=== PATIENT | male | born 1970 | race Caucasian/White ===

== ENCOUNTER 2020-05-09 11:28 | Inpatient (IN) | payer OTHER ==
[~2020-05-09] VITALS: Ht 185.5 cm; Wt 135.1 kg
[2020-05-09 12:15] VITALS: BP 148/83
[2020-05-09 13:18] LABS: ABG BASE EXCESS 1.9 MMOL/L (-2.5-2.5); ABG OXYGEN SATURATION 91 % (94-100); ABG PCO2 39 MMHG (35-45); ABG PH 7.44 (7.37-7.43); ABG PO2 61 MMHG (79-93); ABG TCO2 27.1 MMOL/L (21.0-31.0)
--- NOTE | 2020-05-09 13:19 | History & Physical ---
History of Present Illness History of Present Illness Reason for visit/HPI PT IS A NEW PATIENT IN MY PRACTICE TODAY - HE APPARENTLY WAS EXPOSED TO SOMEONE WITH COVID AND HE HAD BEEN SELF-ISOLATING AT HOME. HIS MOM SUDDENLY ON THURSDAY AT THEIR HOME AND HE STARTED TO FEEL PROGRESSIVLY ILL. HE DID NOT TELL THE OFFICE STAFF THE TRUTH ABOUT HIS EXPOSURE AND PRESENTED INTO MY OFFICE WITH SYMPTOMS OF DIARRHEA, THEN HE TOLD THE OFFICE STAFF THAT HE HAD LOST HIS APPE TITE, AND HAD NOT BEEN EATING WELL OVER THE WEEKEND WHEN HE BECAME PROGRESSIVELY WEAK. HE WAS FOUND TO BE IN ACUTE RESPIRATORY DISTRESS WITH AN OXYGEN SATURATION OF 79% ON ROOM AIR. Date of Admission May 09, 2020 at 12:01 Date Seen by a Provider: May 09, 2020 Time Seen by a Provider: 12:00 Attending Physician ALOK VIDAL MD Admitting Physician Arben Espino MD Consult Allergies and Home Medications Allergies Coded Allergies: No Known Drug Allergies (Unverified , 05/09/20) Home Medications Amlodipine Besylate 10 Mg Tablet, 10 MG PO HS, (Reported) Atorvastatin Calcium 40 Mg Tablet, 40 MG PO HS, (Reported) Cetirizine HCl 10 Mg Tablet, 10 MG PO HS PRN for ALLERGY SYMPTOMS, (Reported) Fenofibric Acid (Choline) 45 Mg Capsule.dr, 45 MG PO HS, (Reported) Hydrochlorothiazide 25 Mg Tablet, 25 MG PO HS, (Reported) Losartan Potassium 100 Mg Tablet, 100 MG PO HS, (Reported) Metformin HCl 1,000 Mg Tablet, 1,000 MG PO BID, (Reported) Patient Home Medication List Home Medication List Reviewed: Yes Past Otjnruk-Rfjfja-Cpywsd Hx Past Med/Social Hx: Reviewed Nursing Past Med/Soc Hx Patient Social History Marrital Status: single Number of Children: 0 Number of living children: 0 Living Status: LIVED WITH HIS MOM 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) Alcohol Use: Occasionally Uses 2nd Hand Smoke Exposure: No Physical Abuse Screen: No Sexual Abuse: No Recent Foreign Travel: No Contact w/other who traveled: No Recent Infectious Disease Expo: Yes (possible exposure to covid19) Seasonal Allergies Seasonal Allergies: Yes Past Medical History Currently Using CPAP: No Currently Using BIPAP: No Cardiac: Hypertension Reproductive: No Sexually Transmitted Disease: No HIV/AIDS: No Gastrointestinal: Chronic Diarrhea Endocrine: Diabetes, Non-Insulin dep Are Your Blood Sugars Over 250: Yes (INTERMITTENTLY) Loss of Vision: Denies Hearing Impairment: Denies Psychosocial: Anxiety History of Blood Disorders: No Adverse Reaction to Blood Gill: No Family History Reviewed Nursing Family Hx COPD (MOM), Hypertension (MOM) Review of Systems Constitutional: No chills; dizziness, fever, malaise, weakness EENTM: No hearing loss, No hoarseness, No throat pain Respiratory: cough, dyspnea on exertion, short of breath Cardiovascular: No chest pain, No edema, No palpitations Gastrointestinal: No abdominal pain; diarrhea, loss of appetite; No nausea, No vomiting Genitourinary: no symptoms reported Musculoskeletal: muscle weakness Skin: no symptoms reported Psychiatric/Neurological: Anxiety; Denies Depressed; Numbness (FEET), Weakness All Other Systems Reviewed Negative Unless Noted: Yes Physical Exam Vital Signs Vital Signs - First Documented 05/09/20 12:15 Temp 36.4 Pulse 105 Resp 24 B/P (MAP) 148/83 Pulse Ox 91 O2 Delivery Nasal Cannula O2 Flow Rate 2.50 Capillary Refill : Height, Weight, BMI Height: '" Weight: lbs. oz. kg; 37.48 BMI Method: General Appearance: WD/WN, Moderate Distress (DUE TO RESPIRATORY DISTRESS) Eyes: Bilateral Eye Normal Inspection, Bilateral Eye PERRL, Bilateral Eye EOMI HEENT: PERRL/EOMI, TMs Normal, Normal ENT Inspection, Pharynx Normal Neck: Full Range of Motion, Normal Inspection, Non Tender, Supple Respiratory: Chest Non Tender, Crackles (BASES TO MID-LUNG), Decreased Breath Sounds; No Wheezing Cardiovascular: Regular Rate, Rhythm, No Edema, No Gallop, Normal Peripheral Pulses Gastrointestinal: Normal Bowel Sounds, No Organomegaly, No Pulsatile Mass, Non Tender, Soft Rectal: Deferred Back: Normal Inspection, No Vertebral Tenderness Extremity: Normal Capillary Refill, No Calf Tenderness Neurologic/Psychiatric: Alert, Oriented x3, No Motor/Sensory Deficits, Normal Mood/Affect, vp project II-XII Norm as Tested Skin: Normal Color, Warm/Dry Lymphatic: No Adenopathy Assessment/Plan Assessment and Plan SARS -2 COVID 19 RESPIRATORY DISTRESS PNEUMONIA HYPOXIA ACUTE RENAL FAILURE LACTIC ACIDOSIS SEPSIS DUE TO COVID 19 HYPERTENSION HYPERLIPIDEMIA DIABETES MELLITUS HYPERBILIRUBINEMIA SARS -2 COVID 19 RESPIRATORY DISTRESS WITH PNEUMONIA AND HYPOXIA - PT TO BE TRANSFERRED TO THE HOSPITALIST SERVICE DUE TO HIS COVID + STATUS - REMDESIVIR TO BE INITIATED PER PROTOCOL - OXYGEN VIA NASAL CANNULA PER PROTOCOL - PT ALSO INITIATED ON STEROIDS, VITAMIN D, VITAMIN C, ZINC, STEROID AND PEPCID (FOR GI PROPHYLAXIS) - PT STARTED ON ROCEPHIN AND AZITHROMYCIN ACUTE RENAL FAILURE - PUSH IV FLUIDS LACTIC ACIDOSIS WITH SEPSIS DUE TO COVID 19 - FLUIDS INITIATED HYPERTENSION - HOLD MEDS FOR NOW DUE TO HYPOTENSION HYPERLIPIDEMIA - HOLD HOME REGIMEN RIGHT NOW, ONCE IMPROVING, WILL RE-INITIATE THERAPY. DIABETES MELLITUS - MONITOR FSBS, START ON SLIDING SCALE INSULIN. HYPERBILIRUBINEMIA - MONITOR LABS DIARRHEA - CHRONIC - SUSPECT MAY BE SECONDARY TO CHRONIC METFORMIN USE - ALSO AUGMENTED DIARRHEA MAY BE DUE TO COVID 19 INFECTION. GI PROPHYLAXIS WITH PEPCID DVT PROPHYLAXIS WITH LOVENOX Admission Diagnosis SARS -2 COVID 19 RESPIRATORY DISTRESS PNEUMONIA HYPOXIA ACUTE RENAL FAILURE LACTIC ACIDOSIS SEPSIS DUE TO COVID 19 HYPERTENSION HYPERLIPIDEMIA DIABETES MELLITUS HYPERBILIRUBINEMIA Admission Status: Inpatient Order (span 2 midnights) Reason for Inpatient Admission: RESPIRATORY DISTRESS WITH COVID 19 - WILL REQUIRE UP TO 5 DAYS IN THE HOSPITAL FOR TREATMENT AND STABILIZATION Clinical Quality Measures DVT/VTE Risk/Contraindication: Risk Factor Score Per Nursin RFS Level Per Nursing on Admit: 2=Moderate ARBEN ESPINO MD May 09, 2020 13:19
[2020-05-09 13:20] LABS: ALLENS TEST YES-POS; INSPIRED O2 2; PATIENT TEMP 36.4; VENTILATOR NO
[2020-05-09] MEDS ORDERED: REMDESIVIR INJ 200 MG in NS (IVPB) 210 ML IV NR (13:30)
[2020-05-09 13:31] LABS: BASOPHILS % (AUTO) 0 % (0-10); EOSINOPHILS % (AUTO) 0 % (0-10); HEMATOCRIT 47 % (40-54); HEMOGLOBIN 14.8 g/dL (13.3-17.7); LYMPHOCYTES # (AUTO) 1.4 10^3/uL (1.0-4.0); LYMPHOCYTES % (AUTO) 14 % (12-44); MEAN CORPUSCULAR HEMOGLOBIN 27 pg (25-34); MEAN CORPUSCULAR HGB CONC 32 g/dL (32-36); MEAN CORPUSCULAR VOLUME 85 fL (80-99); MEAN PLATELET VOLUME 11.8 fL (9.0-12.2); MONOCYTES # (AUTO) 0.6 10^3/uL (0.0-1.0); MONOCYTES % (AUTO) 6 % (0-12); NEUTROPHILS # (AUTO) 7.8 10^3/uL (1.8-7.8); NEUTROPHILS % (AUTO) 79 % (42-75); PLATELET COUNT 203 10^3/uL (130-400); WHITE BLOOD COUNT 9.9 10^3/uL (4.3-11.0)
[2020-05-09 13:39] LABS: POTASSIUM 3.4 MMOL/L (3.6-5.0)
[2020-05-09 13:40] LABS: CALCIUM 8.3 MG/DL (8.5-10.1)
[2020-05-09 13:41] LABS: TOTAL PROTEIN 8.1 GM/DL (6.4-8.2)
[2020-05-09 13:43] LABS: BILIRUBIN,TOTAL 1.1 MG/DL (0.1-1.0)
[2020-05-09 13:45] LABS: CREATININE SERUM 2.07 MG/DL (0.60-1.30)
[2020-05-09] MEDS ORDERED: CATHETER FLUSH 10 ML SYR IV PRN (13:45)
--- NOTE | 2020-05-09 13:53 | Diagnostic Imaging Report ---
Indication: Respiratory distress. COMPARISON: None FINDINGS: Single frontal radiograph view chest was obtained and demonstrates patchy alveolar opacities within the lateral left mid and lower lung field. Right lung is relatively clear. There is no large effusion or pneumothorax. Cardiac silhouette and pulmonary vasculature within normal limits. Osseous structures show no gross acute abnormalities. IMPRESSION: 1. Findings suspicious for patchy left-sided pneumonia. Follow-up is advised. Dictated by: Dictated on workstation # [id number]
[2020-05-09 13:54] VITALS: BP 148/83
[2020-05-09] MEDS ORDERED: ENOXAPARIN 40 MG/0.4 ML (LOVENOX) SYR SC SCH ×2 (14:00→20:30)
[2020-05-09] MEDS ORDERED: CATHETER FLUSH 10 ML SYR IV SCH (14:00)
[2020-05-09] MEDS ORDERED: ACETAMINOPHEN 500 MG TAB (TYLENOL) PO PRN (14:00)
[2020-05-09 14:06] LABS: SMEAR SCAN COMMENT YES
[2020-05-09] MEDS: LACTATED RINGERS 1,000 ML IV SCH (14:21)
[2020-05-09] MEDS: dexAMETHasone 6 MG TAB (DECADRON) PO SCH (14:22)
[2020-05-09] MEDS: cefTRIAXone 1,000 MG/SWFI 10 ML IV PUSH IV SCH ×2 (14:26)
--- NOTE | 2020-05-09 14:31 | NUR ---
clarified with bogdan Fink to d/c solumedrol and start decadron
[2020-05-09] MEDS ORDERED: HYDR25TA4 PO (15:05)
[2020-05-09] MEDS ORDERED: LOSA100T57 PO (15:05)
[2020-05-09] MEDS ORDERED: ATOR40TA70 PO (15:05)
[2020-05-09] MEDS ORDERED: FENO45CA2 PO (15:05)
[2020-05-09] MEDS ORDERED: CETI10TA49 PO (15:05)
[2020-05-09] MEDS ORDERED: AMLO-251 PO (15:05)
[2020-05-09] MEDS ORDERED: METF-399 PO (15:05)
--- NOTE | 2020-05-09 15:05 | NUR ---
SPOKE WITH PT (CALLED THE ROOM PHONE) AND WENT THRU THE EXT MED HISTORY TO COMPLETE THE MED REC ACCORDING TO THE PT HE TAKES ALL HIS MEDICATIONS @[facility], EXCEPT FOR THE METFORMIN THAT HE TAKES BID OTC MEDS: ZYRTEC PRN
[2020-05-09 15:54] VITALS: BP 117/68
[2020-05-09] MEDS: inSUlin ASPART (NovoLOG) 1 UNIT/0.01 ML (CHARGE PER UNIT) SC SCH ×2 (16:54→21:44)
[2020-05-09] MEDS: LACTOBACILLUS ACIDOPHILUS (PROBIOTIC) CAPSULE PO SCH (17:37)
[2020-05-09] MEDS: metFORMIN 500 MG (GLUCOPHAGE) TAB PO SCH (17:38)
[2020-05-09 20:11] VITALS: BP 124/70
[2020-05-09] MEDS ORDERED: AZITHROMYCIN INJECTION 500 MG in NS (IVPB) 250 ML IV NR (20:30)
[2020-05-09] MEDS ORDERED: FAMOTIDINE 20 MG (PEPCID) TABLET PO SCH (21:00)
[2020-05-09] MEDS: FAMOTIDINE 20 MG (PEPCID) TABLET PO SCH (21:44)
[2020-05-09 23:39] VITALS: BP 131/84
[2020-05-09] MEDS: RT-ALBUTEROL INHALER HFA (VENTOLIN HFA) 18 GM IH SCH (23:49)
[2020-05-10] VITALS (8 sets, daily range): BP systolic 126–147; BP diastolic 69–87
[2020-05-10] MEDS: LACTATED RINGERS 1,000 ML IV SCH ×3 (02:15→22:44)
[2020-05-10] MEDS: RT-ALBUTEROL INHALER HFA (VENTOLIN HFA) 18 GM IH SCH ×3 (02:53→23:41)
[2020-05-10] MEDS: inSUlin ASPART (NovoLOG) 1 UNIT/0.01 ML (CHARGE PER UNIT) SC SCH ×4 (06:10→22:01)
[2020-05-10 06:12] LABS: ALBUMIN 3.2 GM/DL (3.2-4.5); BILIRUBIN,TOTAL 0.7 MG/DL (0.1-1.0); CALCIUM 7.8 MG/DL (8.5-10.1); CREATININE SERUM 1.79 MG/DL (0.60-1.30); POTASSIUM 3.7 MMOL/L (3.6-5.0); TOTAL PROTEIN 6.4 GM/DL (6.4-8.2)
[2020-05-10] MEDS: dexAMETHasone 6 MG TAB (DECADRON) PO SCH (06:17)
[2020-05-10] MEDS ORDERED: AZITHROMYCIN 250 MG TAB (ZITHROMAX) PO ONE (08:01)
[2020-05-10] MEDS: metFORMIN 500 MG (GLUCOPHAGE) TAB PO SCH (08:35)
[2020-05-10] MEDS: FAMOTIDINE 20 MG (PEPCID) TABLET PO SCH ×2 (08:35→22:01)
[2020-05-10] MEDS: LACTOBACILLUS ACIDOPHILUS (PROBIOTIC) CAPSULE PO SCH ×3 (08:35→17:33)
[2020-05-10] MEDS: AZITHROMYCIN INJECTION 250 MG in NS (IVPB) 250 ML IV SCH (08:36)
[2020-05-10] MEDS: ZINC SULFATE 220 MG CAPSULE PO SCH (08:36)
[2020-05-10] MEDS: ASCORBIC ACID (VIT C) 500 MG TABLET PO SCH (08:36)
[2020-05-10] MEDS: VITAMIN D3 125 MCG (5,000 UNITS) CAPSULE PO SCH (08:36)
--- NOTE | 2020-05-10 12:47 | Progress Note - Hospitalist ---
Subjective HPI/CC On Admission Date Seen by Provider: May 10, 2020 Time Seen by Provider: 12:54 Subjective/Events-last exam Pt reports doing better today. No complaints. Breathing better. Only concern is about his social issues outside of the hospital as his mom just . Focused Exam Lactate Level 05/09/20 17:45: Lactic Acid Level 2.07*H 05/09/20 20:20: Lactic Acid Level 2.17*H 05/09/20 22:48: Lactic Acid Level 1.56 Objective Exam Vital Signs Vital Signs Date Time Temp Pulse Resp B/P (MAP) Pulse Ox O2 Delivery O2 Flow Rate FiO2 05/10/20 11:32 36.4 91 18 131/69 (89) 92 Nasal Cannula 4.00 Capillary Refill : Less Than 3 Seconds General Appearance: No Apparent Distress, Chronically ill, Obese Respiratory: Lungs Clear; No Crackles; Other (on 4lpm) Cardiovascular: Regular Rate, Rhythm, No Murmur Gastrointestinal: Normal Bowel Sounds, Non Tender, Soft Neurologic/Psychiatric: Alert, Oriented x3 Results/Procedures Lab Laboratory Tests 05/09/20 13:00 05/10/20 05:11 Patient resulted labs reviewed. Assessment/Plan Assessment and Plan Assess & Plan/Chief Complaint SARS -2 COVID 19 with acute hypoxic respiratory failure - Continue Remdesivir and Decadron - Supplemental oxygen, wean as able - Currently on Rocephin and Azithro- DC if procal negative - Discussed EUA status of convalescent plasma and he wants to think about it - Lovenox - IS - Mildly elevated d-dimer, likely due to COVID- on Lovenox ACUTE RENAL FAILURE -Unsure of baseline - Improving, continue IVF LACTIC ACIDOSIS - likely due to hypoxia, now resolved HYPERTENSION - Well controlled, trend HYPERLIPIDEMIA - On statin at home DIABETES MELLITUS - SSI - Likely going to run high due to steroids HYPERBILIRUBINEMIA - Resolved DIARRHEA - CHRONIC - SUSPECT MAY BE SECONDARY TO CHRONIC METFORMIN USE - ALSO AUGMENTED DIARRHEA MAY BE DUE TO COVID 19 INFECTION - States has not had a BM since admission GI PROPHYLAXIS WITH PEPCID DVT PROPHYLAXIS WITH LOVENOX Diagnosis/Problems Diagnosis/Problems (1) COVID-19 Status: Acute (2) Acute respiratory failure Status: Acute Qualifiers: Respiratory failure complication: hypoxia Qualified Codes: J96.01 - Acute respiratory failure with hypoxia (3) Obesity Status: Chronic Qualifiers: Obesity type: unspecified obesity type Obesity classification: adult class 2 (BMI 35 - 39.9) Body mass index: BMI 38.0-38.9 (4) Hypertension Qualifiers: Hypertension type: essential hypertension Qualified Codes: I10 - Essential (primary) hypertension (5) Diabetes mellitus Status: Chronic Qualifiers: Diabetes mellitus type: type 2 Diabetes mellitus long-term insulin use: without director long term care use Diabetes mellitus complication status: without complication Qualified Codes: E11.9 - Type 2 diabetes mellitus without complications (6) Diarrhea Qualifiers: Diarrhea type: unspecified type Qualified Codes: R19.7 - Diarrhea, unspecified Clinical Quality Measures DVT/VTE Risk/Contraindication: Risk Factor Score Per Nursin RFS Level Per Nursing on Admit: 2=Moderate ANCA VIDAL MD May 10, 2020 12:47
[2020-05-10] MEDS: cefTRIAXone 1,000 MG/SWFI 10 ML IV PUSH IV SCH ×2 (13:13)
[2020-05-10] MEDS: REMDESIVIR INJ 100 MG in NS (IVPB) 230 ML IV SCH (13:16)
--- NOTE | 2020-05-10 14:49 | NUR ---
"RD ASSESSMENT PMHx: HTN; chronic diarrhea; DM; HLD; PT INTERACTION: Note pt is currently in COVID isolation, per chart review. Note all diet information for nutrition assessment is per Kylie IYER or per chart review. Kylie states current appetite appears great. Note avg PO intake 91% x3meal, per chart review. Kylie states no issues with nausea, vomiting, or constipation that she is aware. Kylie states some recent issues with diarrhea. Note last BM was 05/09, and pt not currently on bowel regimen per chart review. Note unable to determine recent wt hx, per chart review. Note unable to determine current level of DM management from the pt, and note recent HbA1c of 9.9 (05/09/20), per chart review. ABNORMAL NUTRITION-RELATED LAB VALUES LOW: Ca 7.8; HIGH: BUN 37; cr 1.79; glu 309 Est. kcal needs: 7102-3731 kcal | 15-18 kcal/kg Est. Pro needs: 105-131 g Pro | 0.8-1.0 g Pro/kg PES STATEMENT: Given current PO intake, no nutrition diagnosis at this time (NO-1.1). INTERVENTION: Continue with current diet order of CHO 75g/m 0snack diet. Did not offer diet education on DM management d/t COVID isolation. Will continue to follow and reassess as pt needs, intake, and status change. Madelyn Guallpa, MS RD LD"
--- NOTE | 2020-05-10 15:24 | NUR ---
CM/SS visited with patient for discharge planning. CM/SS contacted patient via phone. He reports that he is doing okay today. Home: Patient lives at home alone. His mother just recently passed at home this past Thursday. He states since then it has been challenging due to finding out about non-paid taxes on the house. However, the patient reports that he and his sister have hired an employment attorney and they are working on getting the house in the patient's name and the non-paid taxes sorted out. Finances: The patient reports that he has "a lot of money in the bank". 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 Equipment: None. Does not wear it at base line. CM/SS will continue to follow.
[2020-05-10] MEDS ORDERED: ANTACID SUSP 30 ML UDC (MYLANTA) PO PRN (19:15)
[2020-05-10] MEDS ORDERED: MELATONIN 3 MG TABLET PO PRN (19:15)
[2020-05-10] MEDS ORDERED: MILK OF MAGNESIA 400 MG/5 ML 30 ML UDC PO PRN (19:15)
[2020-05-10] MEDS ORDERED: ACETAMINOPHEN 325 MG TABLET PO PRN (19:15)
[2020-05-10] MEDS ORDERED: ONDANSETRON 4 MG/2 ML (SDV) Z0FRAN IV PRN (19:15)
[2020-05-10] MEDS ORDERED: BENZONATATE 100 MG (TESSALON) CAPSULE PO PRN (19:15)
[2020-05-10] MEDS ORDERED: NS IV 500 ML 500 ML ONE (21:15)
[2020-05-11 00:52] VITALS: BP 141/85
--- NOTE | 2020-05-11 00:52 | NUR ---
0052 Convalescent plasma transfusion ended, patient tolerated well. 500 ml bag NS non administered in AUG, used to prime IV tubing.
[2020-05-11] MEDS: LACTATED RINGERS 1,000 ML IV SCH (00:55)
[2020-05-11 04:00] VITALS: BP 140/67
[2020-05-11] MEDS: RT-ALBUTEROL INHALER HFA (VENTOLIN HFA) 18 GM IH SCH ×4 (04:03→18:52)
[2020-05-11] MEDS: dexAMETHasone 6 MG TAB (DECADRON) PO SCH (06:13)
[2020-05-11] MEDS: inSUlin ASPART (NovoLOG) 1 UNIT/0.01 ML (CHARGE PER UNIT) SC SCH ×4 (06:13→20:45)
[2020-05-11 06:28] LABS: ALBUMIN 3.6 GM/DL (3.2-4.5); POTASSIUM 3.4 MMOL/L (3.6-5.0)
[2020-05-11 06:29] LABS: CALCIUM 8.1 MG/DL (8.5-10.1)
[2020-05-11 06:32] LABS: BILIRUBIN,TOTAL 0.7 MG/DL (0.1-1.0)
[2020-05-11 06:34] LABS: CREATININE SERUM 1.43 MG/DL (0.60-1.30)
[2020-05-11 08:05] VITALS: BP 163/93
[2020-05-11] MEDS: ASCORBIC ACID (VIT C) 500 MG TABLET PO SCH (08:25)
[2020-05-11] MEDS: AZITHROMYCIN INJECTION 250 MG in NS (IVPB) 250 ML IV SCH (08:25)
[2020-05-11] MEDS: ZINC SULFATE 220 MG CAPSULE PO SCH (08:25)
[2020-05-11] MEDS: LACTOBACILLUS ACIDOPHILUS (PROBIOTIC) CAPSULE PO SCH ×3 (08:25→17:28)
[2020-05-11] MEDS: VITAMIN D3 125 MCG (5,000 UNITS) CAPSULE PO SCH (08:25)
[2020-05-11] MEDS: FAMOTIDINE 20 MG (PEPCID) TABLET PO SCH ×2 (08:25→20:45)
[2020-05-11 11:20] VITALS: BP 164/97
--- NOTE | 2020-05-11 12:02 | NUR ---
LUDWIN/SS follow up. CM/SS contacted the patient via phone. The patient states that he is "not too bad today". CM/SS checking on patient's mental status due to him losing his mom this week and physician concern. The physician notified this sw that patient appeared depressed and could benefit from a [place] visit. LUDWIN/SS contacted Sheryl Palacio for referral. She states she will be at the hospital around 1:00 p.m. and will visit with patient. CM/SS asked the patient if he would be willing to have a [place] visit. He stated that he is "not jainism" but he guesses that will be okay. CM/SS explained that she can provide him with emotional support and information on group/new coping mechanism. He verbalized understanding. CM/CRAIG will continue to follow.
[2020-05-11] MEDS: REMDESIVIR INJ 100 MG in NS (IVPB) 230 ML IV SCH (12:06)
[2020-05-11] MEDS: ENOXAPARIN 300 MG/3 ML (LOVENOX) MULTI-DOSE VIAL SQ SCH (12:12)
--- NOTE | 2020-05-11 12:41 | Progress Note - Hospitalist ---
Subjective HPI/CC On Admission Date Seen by Provider: May 11, 2020 Time Seen by Provider: 12:32 Subjective/Events-last exam Pt reports feeling about the same. Had increasing oxygen requirement though. His only concern is about his social issues with dealing with his mom's and arrangements. Focused Exam Lactate Level 05/09/20 17:45: Lactic Acid Level 2.07*H 05/09/20 20:20: Lactic Acid Level 2.17*H 05/09/20 22:48: Lactic Acid Level 1.56 Objective Exam Vital Signs Vital Signs Date Time Temp Pulse Resp B/P (MAP) Pulse Ox O2 Delivery O2 Flow Rate FiO2 05/11/20 08:55 96 Nasal Cannula 8.00 05/11/20 08:05 36.4 84 21 163/93 (116) Capillary Refill : Less Than 3 SecondsLess Than 3 Seconds General Appearance: No Apparent Distress, WD/WN Respiratory: Lungs Clear, Other (on 6lpm HFNC) Cardiovascular: Regular Rate, Rhythm, No Murmur Gastrointestinal: Normal Bowel Sounds, Non Tender, Soft Neurologic/Psychiatric: Alert, Oriented x3 Results/Procedures Lab Laboratory Tests 05/11/20 05:45 Patient resulted labs reviewed. Assessment/Plan Assessment and Plan Assess & Plan/Chief Complaint SARS -2 COVID 19 with acute hypoxic respiratory failure - Continue Remdesivir and Decadron - Supplemental oxygen, wean as able - Currently on Rocephin and Azithro- will continue as procal elevated and increasing oxygen need - s/p Convalescent plasma - Lovenox - IS - Mildly elevated d-dimer, likely due to COVID- on Lovenox therapeutically as unable to get CTA due to creatinine ACUTE RENAL FAILURE -Unsure of baseline - Improving and down to 1.43 so will DC IVF LACTIC ACIDOSIS - likely due to hypoxia, now resolved HYPERTENSION - Well controlled, trend HYPERLIPIDEMIA - On statin at home DIABETES MELLITUS -SSI - Likely going to run high due to steroids HYPERBILIRUBINEMIA - Resolved DIARRHEA - CHRONIC - SUSPECT MAY BE SECONDARY TO CHRONIC METFORMIN USE - ALSO AUGMENTED DIARRHEA MAY BE DUE TO COVID 19 INFECTION GI PROPHYLAXIS WITH PEPCID DVT PROPHYLAXIS WITH LOVENOX as above Diagnosis/Problems Diagnosis/Problems (1) COVID-19 Status: Acute (2) Acute respiratory failure Status: Acute Qualifiers: Respiratory failure complication: hypoxia Qualified Codes: J96.01 - Acute respiratory failure with hypoxia (3) Obesity Status: Chronic Qualifiers: Obesity type: unspecified obesity type Obesity classification: adult class 2 (BMI 35 - 39.9) Body mass index: BMI 38.0-38.9 (4) Hypertension Qualifiers: Hypertension type: essential hypertension Qualified Codes: I10 - Essential (primary) hypertension (5) Diabetes mellitus Status: Chronic Qualifiers: Diabetes mellitus type: type 2 Diabetes mellitus mcfp insulin use: without mcfp use Diabetes mellitus complication status: without complication Qualified Codes: E11.9 - Type 2 diabetes mellitus without complications (6) Diarrhea Qualifiers: Diarrhea type: unspecified type Qualified Codes: R19.7 - Diarrhea, unspecified Clinical Quality Measures DVT/VTE Risk/Contraindication: Risk Factor Score Per Nursin RFS Level Per Nursing on Admit: 2=Moderate ANCA VIDAL MD May 11, 2020 12:41
--- NOTE | 2020-05-11 13:00 | NUR ---
DR VIDAL NOTIFIED OF INCREASED BS > 400
[2020-05-11] MEDS: cefTRIAXone 1,000 MG/SWFI 10 ML IV PUSH IV SCH ×2 (15:24)
[2020-05-11 16:08] VITALS: BP 144/81
--- NOTE | 2020-05-11 16:34 | NUR ---
DR VIDAL NOTIFIED OF BS > 400
--- NOTE | 2020-05-11 18:56 | NUR ---
Provided empathic listening and grief support; pt described himself as a quiet, practical and reserved person. He expressed the felt need to process his grief and concerns with someone else. 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 Pt describes meaningful relationship with his sister, a few family members, and an intimate [place] of friends. When asked what he missed most about his mother, he said "just her." He shared that she smiled at him at their last encounter, and he still sees her smile in his minds eye, which comforts him. Pt expressed desire to hear updates from his healthcare team about how he is doing, stating he feels much better but continues to observe his need for 02.
[2020-05-11 19:18] VITALS: BP 144/87
[2020-05-12] VITALS: BP 143/82
[2020-05-12] MEDS: ENOXAPARIN 300 MG/3 ML (LOVENOX) MULTI-DOSE VIAL SQ SCH ×2 (01:04→12:45)
[2020-05-12] MEDS: RT-ALBUTEROL INHALER HFA (VENTOLIN HFA) 18 GM IH SCH ×4 (01:51→22:34)
[2020-05-12 04:55] VITALS: BP 159/73
[2020-05-12] MEDS: inSUlin ASPART (NovoLOG) 1 UNIT/0.01 ML (CHARGE PER UNIT) SC SCH ×4 (05:50→21:43)
[2020-05-12] MEDS: dexAMETHasone 6 MG TAB (DECADRON) PO SCH (06:03)
[2020-05-12 06:11] LABS: HEMOGLOBIN 11.6 g/dL (13.3-17.7); MEAN PLATELET VOLUME 11.5 fL (9.0-12.2); WHITE BLOOD COUNT 8.3 10^3/uL (4.3-11.0)
[2020-05-12 06:29] LABS: ALBUMIN 3.2 GM/DL (3.2-4.5); CHLORIDE 106 MMOL/L (98-107); POTASSIUM 3.2 MMOL/L (3.6-5.0); SODIUM 144 MMOL/L (135-145)
[2020-05-12 06:31] LABS: CALCIUM 7.9 MG/DL (8.5-10.1)
[2020-05-12 06:32] LABS: GLUCOSE 154 MG/DL (70-105); TOTAL PROTEIN 6.2 GM/DL (6.4-8.2)
[2020-05-12 06:33] LABS: CARBON DIOXIDE 23 MMOL/L (21-32)
[2020-05-12 06:34] LABS: BILIRUBIN,TOTAL 0.5 MG/DL (0.1-1.0)
[2020-05-12 06:35] LABS: ALKALINE PHOSPHATASE 45 U/L (40-136); CREATININE SERUM 1.14 MG/DL (0.60-1.30); GFR ESTIMATED > 60
[2020-05-12 06:36] LABS: BUN/CREATININE RATIO 15
[2020-05-12 06:38] LABS: ALANINE AMINOTRANSFERASE 17 U/L (0-55)
[2020-05-12 07:40] VITALS: BP 155/93
[2020-05-12] MEDS: AZITHROMYCIN INJECTION 250 MG in NS (IVPB) 250 ML IV SCH (08:47)
[2020-05-12] MEDS: LACTOBACILLUS ACIDOPHILUS (PROBIOTIC) CAPSULE PO SCH ×3 (08:48→17:18)
[2020-05-12] MEDS: ASCORBIC ACID (VIT C) 500 MG TABLET PO SCH (08:48)
[2020-05-12] MEDS: FAMOTIDINE 20 MG (PEPCID) TABLET PO SCH ×2 (08:48→21:43)
[2020-05-12] MEDS: ZINC SULFATE 220 MG CAPSULE PO SCH (08:48)
[2020-05-12] MEDS: VITAMIN D3 125 MCG (5,000 UNITS) CAPSULE PO SCH (08:48)
[2020-05-12 11:10] VITALS: BP 151/83
--- NOTE | 2020-05-12 12:24 | Progress Note - Hospitalist ---
Subjective HPI/CC On Admission Date Seen by Provider: May 12, 2020 Time Seen by Provider: 12:22 Subjective/Events-last exam Pt reports feeling much better today. No complaints. Took a shower and feels better. Focused Exam Lactate Level 05/09/20 17:45: Lactic Acid Level 2.07*H 05/09/20 20:20: Lactic Acid Level 2.17*H 05/09/20 22:48: Lactic Acid Level 1.56 Objective Exam Vital Signs Vital Signs Date Time Temp Pulse Resp B/P (MAP) Pulse Ox O2 Delivery O2 Flow Rate FiO2 05/12/20 08:43 96 Nasal Cannula 3.00 05/12/20 07:40 35.5 93 18 155/93 (113) Capillary Refill : Less Than 3 SecondsLess Than 3 Seconds General Appearance: No Apparent Distress, Obese Respiratory: Lungs Clear, No Respiratory Distress Cardiovascular: Regular Rate, Rhythm, No Murmur Gastrointestinal: Normal Bowel Sounds, Non Tender, Soft Neurologic/Psychiatric: Alert, Oriented x3 Results/Procedures Lab Laboratory Tests 05/12/20 05:20 Patient resulted labs reviewed. Assessment/Plan Assessment and Plan Assess & Plan/Chief Complaint SARS -2 COVID 19 with acute hypoxic respiratory failure - Continue Remdesivir and Decadron - Supplemental oxygen, wean as able- down to 2lpm - Continue on Rocephin and Azithro - s/p Convalescent plasma - Lovenox - IS - Mildly elevated d-dimer, likely due to COVID- on Lovenox therapeutically as unable to get CTA due to creatinine ACUTE RENAL FAILURE -Unsure of baseline - Improving and down to 1.14 LACTIC ACIDOSIS - likely due to hypoxia, now resolved HYPERTENSION - Well controlled, trend HYPERLIPIDEMIA - On statin at home DIABETES MELLITUS -SSI - Likely going to run high due to steroids but improved with addition of Levemir last night HYPERBILIRUBINEMIA - Resolved DIARRHEA - CHRONIC - SUSPECT MAY BE SECONDARY TO CHRONIC METFORMIN USE - ALSO AUGMENTED DIARRHEA MAY BE DUE TO COVID 19 INFECTION GI PROPHYLAXIS WITH PEPCID DVT PROPHYLAXIS WITH LOVENOX as above Diagnosis/Problems Diagnosis/Problems (1) COVID-19 Status: Acute (2) Acute respiratory failure Status: Acute Qualifiers: Respiratory failure complication: hypoxia Qualified Codes: J96.01 - Acute respiratory failure with hypoxia (3) Obesity Status: Chronic Qualifiers: Obesity type: unspecified obesity type Obesity classification: adult class 2 (BMI 35 - 39.9) Body mass index: BMI 38.0-38.9 (4) Hypertension Qualifiers: Hypertension type: essential hypertension Qualified Codes: I10 - Essential (primary) hypertension (5) Diabetes mellitus Status: Chronic Qualifiers: Diabetes mellitus type: type 2 Diabetes mellitus longterm insulin use: without flavor 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
[2020-05-12] MEDS: cefTRIAXone 1,000 MG/SWFI 10 ML IV PUSH IV SCH ×2 (12:46)
[2020-05-12] MEDS: REMDESIVIR INJ 100 MG in NS (IVPB) 230 ML IV SCH (12:46)
[2020-05-12 15:58] VITALS: BP 159/90
[2020-05-12 19:44] VITALS: BP 160/92
[2020-05-13 00:09] VITALS: BP 156/87
[2020-05-13] MEDS: ENOXAPARIN 300 MG/3 ML (LOVENOX) MULTI-DOSE VIAL SQ SCH ×2 (00:13→12:27)
[2020-05-13] MEDS: RT-ALBUTEROL INHALER HFA (VENTOLIN HFA) 18 GM IH SCH ×2 (02:36→09:43)
[2020-05-13 03:46] VITALS: BP 171/93
[2020-05-13] MEDS: inSUlin ASPART (NovoLOG) 1 UNIT/0.01 ML (CHARGE PER UNIT) SC SCH ×2 (05:33→12:26)
[2020-05-13 05:54] LABS: HEMOGLOBIN 12.2 g/dL (13.3-17.7); MEAN PLATELET VOLUME 11.6 fL (9.0-12.2); WHITE BLOOD COUNT 8.7 10^3/uL (4.3-11.0)
[2020-05-13] MEDS: dexAMETHasone 6 MG TAB (DECADRON) PO SCH (05:58)
[2020-05-13 06:06] LABS: ALBUMIN 3.4 GM/DL (3.2-4.5)
[2020-05-13 06:07] LABS: CHLORIDE 104 MMOL/L (98-107); POTASSIUM 3.4 MMOL/L (3.6-5.0); SODIUM 141 MMOL/L (135-145)
[2020-05-13 06:08] LABS: CALCIUM 8.2 MG/DL (8.5-10.1)
[2020-05-13 06:09] LABS: GLUCOSE 139 MG/DL (70-105); TOTAL PROTEIN 6.6 GM/DL (6.4-8.2)
[2020-05-13 06:10] LABS: CARBON DIOXIDE 22 MMOL/L (21-32)
[2020-05-13 06:11] LABS: BILIRUBIN,TOTAL 0.6 MG/DL (0.1-1.0)
[2020-05-13 06:12] LABS: ALKALINE PHOSPHATASE 51 U/L (40-136)
[2020-05-13 06:13] LABS: CREATININE SERUM 1.07 MG/DL (0.60-1.30); GFR ESTIMATED > 60
[2020-05-13 06:14] LABS: BUN/CREATININE RATIO 15
[2020-05-13 06:15] LABS: ALANINE AMINOTRANSFERASE 25 U/L (0-55)
[2020-05-13 08:00] VITALS: BP 164/90
[2020-05-13] MEDS: VITAMIN D3 125 MCG (5,000 UNITS) CAPSULE PO SCH (08:37)
[2020-05-13] MEDS: AZITHROMYCIN INJECTION 250 MG in NS (IVPB) 250 ML IV SCH (08:37)
[2020-05-13] MEDS: FAMOTIDINE 20 MG (PEPCID) TABLET PO SCH (08:37)
[2020-05-13] MEDS: ASCORBIC ACID (VIT C) 500 MG TABLET PO SCH (08:37)
[2020-05-13] MEDS: LACTOBACILLUS ACIDOPHILUS (PROBIOTIC) CAPSULE PO SCH ×2 (08:37→12:27)
[2020-05-13] MEDS: ZINC SULFATE 220 MG CAPSULE PO SCH (08:38)
[2020-05-13 12:00] VITALS: BP 154/78
--- NOTE | 2020-05-13 13:12 | Discharge Summary ---
Diagnosis/Chief Complaint Date of Admission May 09, 2020 at 12:01 Date of Discharge Primary Care Arben Balderas MD Discharge Diagnosis (1) COVID-19 Status: Acute (2) Acute respiratory failure Status: Acute (3) Obesity Status: Chronic (4) Hypertension (5) Diabetes mellitus Status: Chronic (6) Diarrhea Discharge Summary Discharge Physical Exam Allergies: Coded Allergies: No Known Drug Allergies (Unverified , 05/09/20) Vitals & I&Os Vital Signs Date Time Temp Pulse Resp B/P (MAP) Pulse Ox O2 Delivery O2 Flow Rate FiO2 05/13/20 13:38 117 89 05/13/20 12:00 35.5 20 154/78 (103) High Flow N/C 2.00 General Appearance: No Apparent Distress, Chronically ill, Obese Respiratory: Lungs Clear, No Respiratory Distress Cardiovascular: Regular Rate, Rhythm, No Murmur Gastrointestinal: Normal Bowel Sounds, Non Tender, Soft Neurologic/Psychiatric: Alert, Oriented x3 Hospital Course patient was admitted secondary to acute hypoxic respiratory failure due to COVID-19. he was treated with Decadron, convalescent plasma, Remdesivir. did very well with this and was able to be titrated off of oxygen. He did require significant sliding scale insulin and Levemir while he was admitted. This was discontinued on discharge as this was being due to spheroids. He is advised to follow-up with his primary care doctor in the next week to follow up this hospital stay. Tested for oxygen and did not need this upon discharge. Labs (last 24 hrs) Laboratory Tests 05/12/20 16:02: Glucometer 332H 05/12/20 20:13: Glucometer 216H 05/13/20 05:00: Glucometer 141H 05/13/20 05:26: White Blood Count 8.7, Red Blood Count 4.51, Hemoglobin 12.2L, Hematocrit 38L, Mean Corpuscular Volume 84, Mean Corpuscular Hemoglobin 27, Mean Corpuscular Hemoglobin Concent 32, Red Cell Distribution Width 13.6, Platelet Count 259, Mean Platelet Volume 11.6, Sodium Level 141, Potassium Level 3.4L, Chloride Level 104, Carbon Dioxide Level 22, Anion Gap 15H, Blood Urea Nitrogen 16, Creatinine 1.07, Estimat Glomerular Filtration Rate > 60, BUN/Creatinine Ratio 15, Glucose Level 139H, Calcium Level 8.2L, Corrected Calcium 8.7, Total Bilirubin 0.6, Aspartate Amino Transf (AST/SGOT) 25, Alanine Aminotransferase (ALT/SGPT) 25, Alkaline Phosphatase 51, Total Protein 6.6, Albumin 3.4 05/13/20 11:09: Glucometer 320H Microbiology 05/09/20 Blood Culture - Preliminary, Resulted No growth Patient resulted labs reviewed. Pending Labs Laboratory Tests 05/13/20 11:09: Glucometer 320 Discussion & Recommendations Discharge Planning: >30 minutes discharge planning Discharge Home Medications: Active Scripts Active Reported Zyrtec (Cetirizine HCl) 10 Mg Tablet 10 Mg PO HS PRN Fenofibric Acid (Fenofibric Acid (Choline)) 45 Mg Capsule.dr 45 Mg PO HS Metformin HCl 1,000 Mg Tablet 1,000 Mg PO BID Losartan Potassium 100 Mg Tablet 100 Mg PO HS Atorvastatin Calcium 40 Mg Tablet 40 Mg PO HS Amlodipine Besylate 10 Mg Tablet 10 Mg PO HS Hydrochlorothiazide 25 Mg Tablet 25 Mg PO HS Instructions to patient/family Please see electronic discharge instructions given to patient. Clinical Quality Measures DVT/VTE Risk/Contraindication: Risk Factor Score Per Nursin RFS Level Per Nursing on Admit: 2=Moderate Copy Copies To 1: ARBEN BALDERAS MD Problem Qualifiers (1) Acute respiratory failure: Respiratory failure complication: hypoxia Qualified Codes: J96.01 - Acute re spiratory failure with hypoxia (2) Obesity: Obesity type: unspecified obesity type Obesity classification: adult class 2 (BMI 35 - 39.9) Body mass index: BMI 38.0-38.9 (3) Hypertension: Hypertension type: essential hypertension Qualified Codes: I10 - Essential (primary) hypertension (4) Diabetes mellitus: Diabetes mellitus type: type 2 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
--- NOTE | 2020-05-13 13:13 | Discharge Inst-Simple/Standard ---
Discharge Inst-Standard Patient Instructions/Follow Up Plan of Care/Instructions/FU: please continue to take her medications as written. Please follow up with Dr. Balderas in the next week to follow up this hospital today. Activity as Tolerated: Yes Discharge Diet: ADA Diet Return to The Hospital For: shortness of breath, fever, chest pain, if you feel your getting worse. Planned Outpatient Orders/Ref. Pneu Vac Indicated: Yes ANCA VIDAL MD May 13, 2020 13:13
--- NOTE | 2020-05-13 13:39 | NUR ---
PT DOES NOT QUALIFY FOR 02. PT NEVER DESATURATED BELOW 89% ON ROOM AIR WHILE WALKING. Addendum: 05/13/20 at 1339 by LASHAY RUDD RT Amended: Links added.
[2020-05-13] MEDS: REMDESIVIR INJ 100 MG in NS (IVPB) 230 ML IV SCH (14:44)
[2020-05-13] MEDS: cefTRIAXone 1,000 MG/SWFI 10 ML IV PUSH IV SCH ×2 (15:45)
--- NOTE | 2020-05-13 16:00 | NUR ---
PT DISCHARGED AT 1600. THIS RN PROVIDED EDUCATION TO PT RE QUARANTINING FOR THE FULL 14 DAYS SINCE SYMPTOMS STARTED, PT REPORTED HE THINKS HE HAS 3 MORE DAYS, BUT UNSURE OF EXACTLY WHEN HE STARTED GETTING ILL. HE HAD ALL OF HIS BELONGS WITH HIM AND IV CATH WAS TAKEN OUT AT BEDSIDE AND TIP WAS INTACT. PTS FRIEND PICKED HIM UP AT [facility].
--- NOTE | 2020-05-15 05:48 | Physician Query Clarification ---
PQ-Uncertain Diagnosis Admission/Discharge Admission Date: May 09, 2020 at 12:01 Discharge Date: May 13, 2020 at 16:00 Dr. ANCA VIDAL MD The medical record reflects the following clinical scenario: History/Risk Factors: 50 y/o male patient was admitted secondary to acute hypoxic respiratory failure due to COVID-19. Hand P, 05/09: SARS -2 COVID 19 Respiratory distress with pneumonia and hypoxia, sepsis due to COVID 19 Progress notes, 05/12: SARS -2 COVID 19 with acute hypoxic respiratory failure, acute renal failure Discharge summary, 05/13: Acute hypoxic respiratory failure due to COVID-19. he was treated with Decadron, convalescent plasma, Remdesivir. Clinical Findings: Pulse-117, acidosis Treatment: Decadron, convalescent plasma, Remdesivir. Question: Is Sepsis a clinically valid diagnosis? Sepsis due to COVID 19 was documented in the H&P, 05/09 with no further documentation in the medical record. Please document a response in Progress Note or Discharge Summary. 1. Yes, clinically valid, condition resolved. 2. No, condition ruled out. 3. Other, with explanation of clinical findings. 4. Undetermined, no explanation for clinical findings. PHYSICIAN RESPONSE Diagnosis clinically valid: No, conditon ruled out Please remember a lack of response to the above will prompt a phone page by [facility] staff. In responding to this query, please exercise your independent professional judgment. The purpose of this communication is to more accurately reflect the complexity of your patients condition. The fact that a question is asked does not imply that any particular answer is desired or expected. Thank you for your timely response to this clarification. Requestors name: [ ] Phone # [ ] THIS PHYSICIAN QUERY FORM IS A PERMANENT PART OF THE MEDICAL RECORD KAUSHAL ROD May 15, 2020 05:48 ANCA VIDAL MD May 15, 2020 20:24
== END 2020-05-13 16:00 | disposition home or self-care (01) | DRG 177 ==
LOC: 4TH 12:01
PROVIDERS: ADMIT Family Medicine; ATTEND Family Medicine
PROC: XW033E5 Introduction of Remdesivir Anti-infective into Peripheral Vein, Percutaneous Approach, New Technology Group 5 (ICD-10-PCS; principal; 2020-05-10)
PROC: XW13325 Transfusion of Convalescent Plasma (Nonautologous) into Peripheral Vein, Percutaneous Approach, New Technology Group 5 (ICD-10-PCS; 2020-05-10)
DX: U07.1 COVID-19 (principal); J12.89 Other viral pneumonia; J96.01 Acute respiratory failure with hypoxia; E87.2 Acidosis; N17.9 Acute kidney failure, unspecified; K52.1 Toxic gastroenteritis and colitis; I10 Essential (primary) hypertension; J30.2 Other seasonal allergic rhinitis; E11.9 Type 2 diabetes mellitus without complications; F41.9 Anxiety disorder, unspecified; M62.81 Muscle weakness (generalized); R20.0 Anesthesia of skin; E78.5 Hyperlipidemia, unspecified; E80.6 Other disorders of bilirubin metabolism; Z79.84 Long term (current) use of oral hypoglycemic drugs; E66.9 Obesity, unspecified; Z68.39 Body mass index [BMI] 39.0-39.9, adult; T38.3X5A Adverse effect of insulin and oral hypoglycemic [antidiabetic] drugs, initial encounter
CPT/HCPCS: 36415; 71045; 80053; 82805; 82962; 83036; 83605; 84145; 85025; 85027; 85379; 86900; 86901; 87040; 87635; 94640; 94760; 94761